=== PATIENT | male | born 1995 | race Caucasian/White ===

== ENCOUNTER 2017-03-25 14:58 | Emergency (ER) | payer SELFPAY ==
--- NOTE | 2017-03-25 15:33 | EDM.PDOC ---
ED HPI GENERAL MEDICAL PROBLEM - General Chief Complaint: Back Pain or Injury Stated Complaint: BACK PAIN Time Seen by Provider: 03/25/17 15:32 Source of Information: Reports: Patient History Limitations: Reports: No Limitations - History of Present Illness INITIAL COMMENTS - FREE TEXT/NARRATIVE: History of present illness: [2-year-old male presenting with mid thoracic back pain. Patient indicates that he has not worked for the last 2 weeks, denies any known trauma, indicated that he woke up this way and that it is debilitating.] Review of systems: As per history of present illness and below otherwise all systems reviewed and negative. Past medical history: As per history of present illness and as reviewed below otherwise noncontributory. Surgical history: As per history of present illness and as reviewed below otherwise noncontributory. Social history: No reported history of drug or alcohol abuse. Family history: As per history of present illness and as reviewed below otherwise noncontributory. Physical exam: HEENT: Atraumatic, normocephalic, pupils reactive, negative for conjunctival pallor or scleral icterus, mucous membranes moist, throat clear, neck supple, nontender, trachea midline. Lungs: Clear to auscultation, breath sounds equal bilaterally, chest nontender. Heart: S1S2, regular, negative for clicks, rubs, or JVD. Abdomen: Soft, nondistended, nontender. Negative for masses or hepatosplenomegaly. Negative for costovertebral tenderness. Pelvis: Stable nontender. Genitourinary: Deferred. Rectal: Deferred. Extremities: Atraumatic, negative for cords or calf pain. Neurovascular unremarkable. Neuro: Awake, alert, oriented. Cranial nerves II through XII unremarkable. Cerebellum unremarkable. Motor and sensory unremarkable throughout. Exam nonfocal. Point tenderness to mid thoracic back was significant amount of guarding noted Patient eloped prior to x-ray and/or Toradol injection Diagnostics: [Thoracic spine x-ray] Therapeutics: [Toradol] Impression: [] Plan: [] Definitive disposition and diagnosis as appropriate pending reevaluation and review of above. Middle Back Pain Score (Numeric/FACES): 10 - Related Data Allergies Allergy/AdvReac Type Severity Reaction Status Date / Time No Known Allergies Allergy Verified 03/25/17 15:30 Home Meds: Home Meds . [No Known Home Meds] 03/25/17 [History] ED ROS GENERAL - Review of Systems Review Of Systems: See Below (History of present illness) ED EXAM, GENERAL - Physical Exam Exam: See Below (See history of present illness) Course - Vital Signs Last Recorded V/S: Last Vital Signs Temp 36.9 C 03/25/17 15:27 Pulse 80 03/25/17 15:27 Resp 18 03/25/17 15:27 BP 131/64 03/25/17 15:27 Pulse Ox 96 03/25/17 15:27 - Orders/Labs/Meds Orders: Active Orders 24 hr Category Date Time Status Chest 2V [CR] Stat Exams 03/25/17 15:34 Ordered Meds: Medications Discontinued Medications Generic Name Dose Route Start Last Admin Trade Name Luis Miguel PRN Reason Stop Dose Admin Ketorolac Tromethamine 60 mg 03/25/17 15:36 Toradol IM 03/25/17 15:37 ONETIME ONE Departure - Departure Time of Disposition: 15:54 Disposition: Eloped 07 Condition: Good Clinical Impression: Back pain - Discharge Information Referrals: PCP,None [Primary Care Provider] - Forms: ED Department Discharge - My Orders Last 24 Hours: My Active Orders 03/25/17 15:34 Chest 2V [CR] Stat - Assessment/Plan Last 24 Hours: My Active Orders 03/25/17 15:34 Chest 2V [CR] Stat
[2017-03-25] MEDS ORDERED: Ketorolac 60 MG/2 ML SDV IM ONE (15:36)
== END 2017-03-25 15:51 | disposition left against medical advice (07) ==
LOC: MW.ED 14:58 → EDBD 14:58 → MW.ED 15:51
DX: M54.6 Pain in thoracic spine (principal)
CPT/HCPCS: 99282